=== PATIENT | male | born 1975 | race Caucasian/White ===

== ENCOUNTER 2022-04-14 14:54 | Emergency (ER) | payer BC ==
[2022-04-14] MEDS ORDERED: Amoxicillin 500 MG Cap PO ONE (15:20)
== END 2022-04-14 15:35 | disposition home or self-care (01) ==
LOC: KA.ED 14:54
DX: K04.7 Periapical abscess without sinus (principal); Z79.82 Long term (current) use of aspirin; Z79.899 Other long term (current) drug therapy
CPT/HCPCS: 99282; 99283; A9270-GY

== ENCOUNTER 2022-12-25 20:34 | Emergency (ER) | payer BC | END 2022-12-25 21:54 | disposition home or self-care (01) | LOC: KA.ED 20:34 | DX: S93.402A Sprain of unspecified ligament of left ankle, initial encounter (principal); W19.XXXA Unspecified fall, initial encounter | CPT/HCPCS: 73610-LT; 99283 ==